=== PATIENT | female | born 1990 | race Caucasian/White ===

== ENCOUNTER 2023-10-15 10:02 | Emergency (ER) | payer OTHER, SELFPAY ==
--- NOTE | 2023-10-15 10:30 | ED.FEMALEGU ---
HPI - Female Genitourinary General Chief complaint: Urogenital-Female Stated complaint: uti symptoms Time Seen by Provider: 10/15/23 10:47 Source: patient and RN notes reviewed Mode of arrival: ambulatory Limitations: no limitations History of Present Illness HPI Narrative: 33-year-old female presents concern for urinary tract infection. She reports several week history of dysuria intermittently. Reports over last several days she has began having flank pain, worsening dysuria, frequency, urgency. She reports white thick discharge over the last several days. She denies vaginal itching. Denies concern for sexually transmitted infection. She denies abdominal pain, nausea, vomiting MD elicited complaint: UTI Related Data Allergies Allergy/AdvReac Type Severity Reaction Status Date / Time No Known Allergies Allergy Verified 10/15/23 10:40 Review of Systems Review of Systems: CONSTITUTIONAL: Denies malaise, chills, sweats, or fever. CARDIOVASCULAR: Denies chest pain, palpitations, or edema. RESPIRATORY: Denies cough or dyspnea. GASTROINTESTINAL: Denies abdominal pain, nausea, vomiting, diarrhea GENITOURINARY: Reports dysuria, frequency, urgency. Reports bilat flank pain. Denies hematuria. SKIN: Denies rash or itching. MUSCULOSKELETAL: Denies back pain or myalgia. All systems reviewed & are unremarkable except as noted in HPI and below PMFSH Comments At time of signature, agree with nursing past medical, surgical, social and family history. There is no relevant family history pertinent to the presenting complaint Exam Narrative: GENERAL: Well-appearing, well-nourished, and in no acute distress. HEAD: Normocephalic. EYES: PERRLA, conjunctivae clear. NECK: Supple. No lymphadenopathy CHEST: Clear to auscultation. No respiratory distress. HEART: Regular rate and rhythm. ABDOMEN: Soft, nontender upon palpation, nondistended, normal active bowel sounds, no palpable or pulsatile masses, no guarding. Right cVA tenderness SKIN: Warm, dry, no rash. NEURO: Alert and oriented x3. PSYCH: Normal mood and affect Course Course Emergency Course: Patient is aware of diagnosis, understands and agrees to treatment plan. Anticipatory guidance given. Patient agrees to follow-up as directed and is aware of reasons to seek care at the emergency department. Portions of this record may have been created with voice recognition software Level of Care: Express Care Visit Vital Signs Vital signs: Vital Signs Temperature 96.9 F L 10/15/23 10:36 Pulse Rate 76 10/15/23 10:36 Respiratory Rate 16 10/15/23 10:36 Blood Pressure 116/75 10/15/23 10:36 Pulse Oximetry 99 10/15/23 10:36 Oxygen Delivery Room Air 10/15/23 10:36 Temperature 96.9 F L 10/15/23 10:36 Pulse Rate 76 10/15/23 10:36 Respiratory Rate 16 10/15/23 10:36 Blood Pressure 116/75 10/15/23 10:36 Pulse Oximetry 99 10/15/23 10:36 Oxygen Delivery Room Air 10/15/23 10:36 Reviewed. MDM - Female Genitourinary MDM Narrative Medical decision making narrative: Exam findings and UA show no acute concerns or changes; patient is non-toxic appearing and is in no distress. Patient is appropriate for outpatient treatment and follow-up. Differential Diagnosis Differential diagnosis: Likely urinary tract infection and cystitis Lab Data Labs: Urine Glucose Negative Reference Range: Negative Urine Bilirubin Negative Reference Range: Negative Urine Ketone Negative Reference Range: Negative Urine Specific Cos Cob 1.025 Reference Range:1.001-1.035 Urine Blood Negative Reference Range: Negative *
[2023-10-15 10:36] VITALS: BP 116/75; PULSE 76; RESP 16; TEMP 36.1; O2SAT 99
== END 2023-10-15 10:54 | disposition home or self-care (01) ==
PROVIDERS: Emergency Provider Nurse Practitioner
DX: N39.0 Urinary tract infection, site not specified (principal)
CPT/HCPCS: 81003; 87077; 87086; 87088; 99213; G0463